=== PATIENT | female | born 1950 | race Caucasian/White ===

== ENCOUNTER → 2017-04-24 | Outpatient (CLI) | payer MEDICARE, BC ==
--- NOTE | 2017-04-27 19:03 | Diagnostic Imaging Report ---
Bilateral screening mammogram. The current study was also evaluated with a Computer Aided Detection (CAD) system. INDICATION: Screening. No current complaints stated on the questionnaire. COMPARISON: 04/17/2016. FINDINGS: The breasts are composed of scattered fibroglandular densities. There are occasional benign-appearing calcifications. Allowing for technique and positional differences, no suspicious change is seen. IMPRESSION: No significant change. ACR BI-RADS Category 2: Benign findings. Result letter will be mailed to the patient. Note: At least 10% of breast cancer is not imaged by mammography. Dictated by: Dictated on workstation # [id number]
== END ==
LOC: RAD 09:35
PROVIDERS: ATTEND Physician Assistant Medical
DX: Z12.31 Encounter for screening mammogram for malignant neoplasm of breast (principal)
CPT/HCPCS: 77067

== ENCOUNTER → 2018-02-19 | Outpatient (RCR) | payer MEDICARE, BC | END | disposition home or self-care (01) | LOC: CR3 01-20 14:48 | PROVIDERS: ATTEND Physician Assistant Medical | DX: Z29.8 Encounter for other specified prophylactic measures (principal) ==

== ENCOUNTER → 2018-03-24 | Outpatient (RCR) | payer MEDICARE, BC | END | disposition home or self-care (01) | LOC: CR3 02-22 09:00 | PROVIDERS: ATTEND Physician Assistant Medical | DX: Z29.8 Encounter for other specified prophylactic measures (principal) ==

== ENCOUNTER 2018-04-23 11:47 | Outpatient (RCR) | payer BC, MEDICARE | END 2018-04-25 | disposition home or self-care (01) | LOC: CR3 11:47 | PROVIDERS: ATTEND Physician Assistant Medical | DX: Z29.8 Encounter for other specified prophylactic measures (principal) ==

== ENCOUNTER → 2018-04-29 | Outpatient (CLI) | payer MEDICARE ==
--- NOTE | 2018-04-29 19:56 | Diagnostic Imaging Report ---
INDICATION: Routine screening. Comparison is made with prior mammograms from 04/24/2017 and 04/17/2016. 2-D and 3-D bilateral screening mammography was performed. The current study was also evaluated with a Computer Aided Detection (CAD) system. FINDINGS: Scattered fibroglandular densities are identified bilaterally. The parenchymal pattern is stable. Intramammary lymph node in the lower central left breast appears stable. No new mass or malignant-appearing microcalcifications are seen. The axillae are unremarkable. IMPRESSION: No mammographic features suspicious for malignancy are identified. ACR BI-RADS Category 2: Benign findings. Result letter will be mailed to the patient. Note: At least 10% of breast cancer is not imaged by mammography. Dictated by: Dictated on workstation # [id number]
== END ==
LOC: RAD 09:37
PROVIDERS: ATTEND Physician Assistant Medical
DX: Z12.31 Encounter for screening mammogram for malignant neoplasm of breast (principal)
CPT/HCPCS: 77067

== ENCOUNTER → 2018-05-28 | Outpatient (RCR) | payer MEDICARE | END | disposition home or self-care (01) | LOC: CR3 04-28 13:00 | PROVIDERS: ATTEND Physician Assistant Medical | DX: Z29.8 Encounter for other specified prophylactic measures (principal) ==

== ENCOUNTER 2018-06-18 09:30 | Outpatient (RCR) | payer MEDICARE | END 2018-07-02 | disposition home or self-care (01) | LOC: CR3 09:30 | PROVIDERS: ATTEND Physician Assistant Medical | DX: Z29.8 Encounter for other specified prophylactic measures (principal) ==

== ENCOUNTER → 2018-08-06 | Outpatient (RCR) | payer MEDICARE | END | disposition home or self-care (01) | LOC: CR3 07-07 10:00 | PROVIDERS: ATTEND Physician Assistant Medical | DX: Z29.8 Encounter for other specified prophylactic measures (principal) ==

== ENCOUNTER → 2018-09-08 | Outpatient (RCR) | payer MEDICARE | END | disposition home or self-care (01) | LOC: CR3 08-09 10:00 | PROVIDERS: ATTEND Physician Assistant Medical | DX: Z29.8 Encounter for other specified prophylactic measures (principal) ==

== ENCOUNTER 2018-10-04 09:28 | Outpatient (RCR) | payer MEDICARE | END 2018-10-13 | disposition home or self-care (01) | LOC: CR3 09:28 | PROVIDERS: ATTEND Physician Assistant Medical | DX: Z29.8 Encounter for other specified prophylactic measures (principal) | CPT/HCPCS: 93798 ==

== ENCOUNTER 2018-11-05 09:34 | Outpatient (RCR) | payer MEDICARE | END 2018-11-19 | disposition home or self-care (01) | LOC: CR3 09:34 | PROVIDERS: ATTEND Physician Assistant Medical | DX: Z29.8 Encounter for other specified prophylactic measures (principal) ==

== ENCOUNTER 2018-11-22 17:18 | Outpatient (RCR) | payer MEDICARE | END 2018-12-22 | disposition home or self-care (01) | LOC: CR3 17:18 | PROVIDERS: ATTEND Physician Assistant Medical | DX: Z29.8 Encounter for other specified prophylactic measures (principal) ==

== ENCOUNTER → 2019-05-05 | Outpatient (CLI) | payer MEDICARE ==
--- NOTE | 2019-05-05 18:47 | Diagnostic Imaging Report ---
INDICATION: Routine screening. COMPARISON: Comparison is made with prior mammogram from 04/29/2018 and 04/24/2017. 2-D and 3-D bilateral screening mammography was performed. The current study was also evaluated with a Computer Aided Detection (CAD) system. 3-D tomosynthesis was also performed and reviewed. FINDINGS: Scattered fibroglandular densities are identified bilaterally. The parenchymal pattern is stable. No mass or malignant-appearing microcalcifications are seen. There are benign calcifications present. Axillae are unremarkable. IMPRESSION: No mammographic features suspicious for malignancy are identified. ACR BI-RADS Category 2: Benign findings. Result letter will be mailed to the patient. Note: At least 10% of breast cancer is not imaged by mammography. Dictated by: Dictated on workstation # [id number]
== END ==
LOC: RAD 09:36
PROVIDERS: ATTEND Physician Assistant Medical
DX: Z12.31 Encounter for screening mammogram for malignant neoplasm of breast (principal)
CPT/HCPCS: 77067

== ENCOUNTER 2019-07-20 09:41 | Outpatient (RCR) | payer MEDICARE | END 2019-07-27 | disposition home or self-care (01) | LOC: CR3 09:41 | PROVIDERS: ATTEND Physician Assistant Medical | DX: Z29.8 Encounter for other specified prophylactic measures (principal) ==

== ENCOUNTER → 2020-05-07 | Outpatient (CLI) | payer MEDICARE ==
--- NOTE | 2020-05-07 11:23 | Diagnostic Imaging Report ---
INDICATION: Routine screening. Comparison is made with prior mammogram from 05/05/2019 and 04/29/2018. 2-D and 3-D bilateral screening mammography was performed with CAD. Scattered fibroglandular densities are identified bilaterally. The parenchymal pattern is stable. No dominant mass or malignant appearing microcalcifications are seen. Axillae are unremarkable. IMPRESSION: BI-RADS Category 1 No mammographic features suspicious for malignancy are identified. ACR BI-RADS Category 1: Negative. Result letter will be mailed to the patient. Note: At least 10% of breast cancer is not imaged by mammography. Dictated by: Dictated on workstation # [id number]
== END ==
LOC: RAD 09:01
PROVIDERS: ATTEND Nurse Practitioner Family
DX: Z12.31 Encounter for screening mammogram for malignant neoplasm of breast (principal)
CPT/HCPCS: 77063; 77067

== ENCOUNTER → 2021-05-09 | Outpatient (CLI) | payer MEDICARE ==
--- NOTE | 2021-05-10 10:13 | Diagnostic Imaging Report ---
INDICATION: 2-D and 3-D digital screening with CAD. COMPARED: 05/07/2020, 04/2019 and 04/2018. FINDINGS: Scattered fibroglandular densities in the breasts. No mass, architectural distortions, spiculated lesion or suspicious calcifications are found. There has been no change. IMPRESSION: Stable negative mammogram BI-RADS Category 1 ACR BI-RADS Category 1: Negative. Result letter will be mailed to the patient. Note: At least 10% of breast cancer is not imaged by mammography. Dictated by: Dictated on workstation # [id number]
== END ==
LOC: RAD 09:54
PROVIDERS: ATTEND Nurse Practitioner Family
DX: Z12.31 Encounter for screening mammogram for malignant neoplasm of breast (principal)
CPT/HCPCS: 77063; 77067

== ENCOUNTER → 2022-05-12 | Outpatient (CLI) | payer MEDICARE ==
--- NOTE | 2022-05-13 10:11 | Diagnostic Imaging Report ---
INDICATION: Bilateral 3-D digital screening with CAD CAD is utilized. The current study was also evaluated with a Computer Aided Detection (CAD) system. Comparison: 04/2021 and 04/2019 Findings: Density 2. No breast mass, spiculated lesion, suspicious calcifications or evidence for malignancy. No architectural distortion, there has been no change. IMPRESSION: Stable negative mammograms. BI-RADS Category 1 ACR BI-RADS Category 1: Negative. Result letter will be mailed to the patient. Note: At least 10% of breast cancer is not imaged by mammography. Dictated by: Dictated on workstation # [id number]
== END ==
LOC: RAD 09:52
PROVIDERS: ATTEND Family Medicine
DX: Z12.31 Encounter for screening mammogram for malignant neoplasm of breast (principal)
CPT/HCPCS: 77063; 77067

== ENCOUNTER → 2022-05-21 | Outpatient (CLI) | payer MEDICARE ==
--- NOTE | 2022-05-21 11:03 | Diagnostic Imaging Report ---
INDICATION: Swelling in the right inguinal region as well as a questionable mass in the right buttocks. This study is performed for further evaluation. FINDINGS: Sonographic interrogation of the right inguinal region does demonstrate an area of heterogeneity measuring 3.0 x 1.6 x 3.6 cm that appears to increase during Valsalva. Findings are most suggestive of a hernia. This hernia sac may contain bowel loops. Sonographic interrogation of the area of mass in the right buttock region does show a shadowing mass measuring 1.1 x 0.4 x 1.6 cm. This is suggestive of a calcified mass. Significant shadowing does limit characterization. IMPRESSION: 1. Right inguinal hernia, likely containing bowel loops. 2. Calcified right buttock mass, nonspecific. Dictated by: Dictated on workstation # [id number]
== END ==
LOC: RAD 09:36
PROVIDERS: ATTEND Nurse Practitioner Family
DX: K40.90 Unilateral inguinal hernia, without obstruction or gangrene, not specified as recurrent (principal); R22.31 Localized swelling, mass and lump, right upper limb
CPT/HCPCS: 76881

== ENCOUNTER 2022-07-03 05:32 | Outpatient (CLI) | payer MEDICARE ==
[~2022-07-03] VITALS: Ht 157.5 cm; Wt 64.9 kg
[2022-07-03] MEDS ORDERED: PRED5TAB46 PO (16:18)
[2022-07-03] MEDS ORDERED: CEPH500T PO (16:18)
[2022-07-04] MEDS ORDERED: OMEP40CA6 PO (11:02)
[2022-07-04] MEDS ORDERED: ALPH600C3 PO (11:02)
[2022-07-04] MEDS ORDERED: [UNRECOGNIZED DRUG - CODE] PO (11:02)
[2022-07-04] MEDS ORDERED: MILK175C5 PO (11:02)
[2022-07-04] MEDS ORDERED: CALC-83 PO (11:02)
[2022-07-04] MEDS ORDERED: PSYL1PAC10 PO (11:02)
[2022-07-04] MEDS ORDERED: CHOL-34 PO (11:02)
[2022-07-04] MEDS ORDERED: PRAS1TAB3 PO (11:02)
[2022-07-04] MEDS ORDERED: TRZ50T PO (11:02)
[2022-07-04] MEDS ORDERED: CHRO200T13 PO (11:02)
[2022-07-04] MEDS ORDERED: PARO20TA5 PO (11:02)
[2022-07-04] MEDS ORDERED: CYAN100T37 PO (11:02)
[2022-07-04] MEDS ORDERED: LACT1CAP74 PO (11:02)
== END 2022-07-04 11:03 | disposition home or self-care (01) ==
LOC: PREOP 05:32
PROVIDERS: ATTEND Surgery
DX: Z01.818 Encounter for other preprocedural examination (principal)

== ENCOUNTER 2022-07-10 06:29 | Day surgery (SDC) | payer MEDICARE ==
[~2022-07-10] VITALS: Ht 157.5 cm; Wt 64.9 kg
[2022-07-10] VITALS (10 sets, daily range): BP systolic 133–169; BP diastolic 10–109
[~2022-07-10 06:29] MED LIST: ALPH600C3 PO; CALC-83 PO; CEPH500T PO; CHOL-34 PO; CHRO200T13 PO; CYAN100T37 PO; LACT1CAP74 PO; MILK175C5 PO; OMEP40CA6 PO; PARO20TA5 PO; PRAS1TAB3 PO; PRED5TAB46 PO; PSYL1PAC10 PO; TRZ50T PO; [UNRECOGNIZED DRUG - CODE] PO
[2022-07-10] MEDS ORDERED: ceFAZolin INJECTION 2,000 MG in NS (IVPB) 50 ML IV ONE (06:45)
[2022-07-10] MEDS ORDERED: BUP/EPI 0.5% 1:200,000 (MARCAINE) 10ML VIAL IJ ONE ×2 (06:52→07:30)
[2022-07-10] MEDS: LACTATED RINGERS 1,000 ML IV PRN ×2 (07:01→10:08)
[2022-07-10] MEDS ORDERED: BUP/EPI 0.5% 1:200,000 (SENSORCAINE) 30 ML VIAL INJ ONE (07:15)
[2022-07-10] MEDS ORDERED: proPOfol 200 MG/20 ML (DIPRIVAN) VIAL IV ONE (07:22)
[2022-07-10] MEDS ORDERED: SEVOFLURANE (ULTANE) 15 ML INHAL SOLN ONE ×2 (07:22→09:16)
[2022-07-10] MEDS ORDERED: ONDANSETRON 4 MG/2 ML (SDV) Z0FRAN ONE (07:22)
[2022-07-10] MEDS ORDERED: LIDOCAINE PF 2% 5 ML (XYLOCAINE) VIAL ONE (07:22)
[2022-07-10] MEDS ORDERED: ROCURONIUM 10 MG/ML 5 ML SYRINGE IV ONE (07:22)
[2022-07-10] MEDS ORDERED: MIDAZOLAM 2 MG/2 ML (VERSED) VIAL ONE (07:22)
[2022-07-10] MEDS ORDERED: fentaNYL INJ 100 MCG/2 ML AMP ONE (07:22)
--- NOTE | 2022-07-10 08:40 | Progress Note-Pre Operative ---
Pre-Operative Progress Note Date of Available H&P: Jul 14, 2022 Date H&P Reviewed: Jul 10, 2022 Time H&P Reviewed: 08:40 History & Physical: H&P Reviewed, Patient Examed, No changes noted Pre-Operative Diagnosis: right inguinal hernia NURY CAMERON DO Jul 10, 2022 08:40
[2022-07-10] MEDS ORDERED: ACHD5005 PO (10:22)
[2022-07-10] MEDS ORDERED: DOCU-143 PO (10:22)
--- NOTE | 2022-07-10 10:25 | Discharge Inst-Simple/Standard ---
Discharge Inst-Standard Discharge Medications New, Converted or Re-Newed RX: Transmitted to Pharmacy Patient Instructions/Follow Up Plan of Care/Instructions/FU: 2-3 weeks Angel Activity as Tolerated: No Discharge Diet: Regular Diet Other Inst to Patient Follow up Appt: Make appointment for 2-3 week. Instructions: No lifting greater than 10 pounds. No strenuous activity. May shower in 24 hours, no tub bath or soaking. Use incentive spirometer at home as directed. No Smoking Skin/Wound Care: You have special glue over your incision that will fall off on it's own. Symptoms to Report: Appetite Changes, Extremity Discoloration, Numbness/Tingling, Swelling Increas ed, Bleeding Excessive, Eyesight Changes, Pain Increased, Urine Color Change, Constipation(Persistent), Fever over 101 degree F, Pain/Pressure in chest, Urinating Difficulty, Cough Up/Vomit Blood, Heart Beat Irreg/Pounding, Pain/Pressure in jaw, Vaginal Bleeding Increase, Cramps in feet or legs, Lightheadedness, Pain/Pressure in shoulder, Diarrhea(Persistent), Memory Changes Suddenly, Questions/Concerns, Weight gain consecutive days, Dizziness/Fainting, Nausea/Vomiting, Shortness of Breath, Weight gain over 2 pounds If questions or concerns contact your physician Or seek help at emergency department. NURY CAMERON DO Jul 10, 2022 10:25
[2022-07-10] MEDS ORDERED: ONDANSETRON 4 MG/2 ML (SDV) Z0FRAN IVP PRN (10:30)
[2022-07-10] MEDS ORDERED: fentaNYL INJ 100 MCG/2 ML AMP IVP ONE (10:30)
[2022-07-10] MEDS ORDERED: morphine INJ 10 MG/ML 1ML (SYR OR VIAL) IVP ONE (10:30)
[2022-07-10] MEDS ORDERED: MEPERIDINE (DEMEROL) INJ 50 MG/ML IVP ONE (10:30)
--- NOTE | 2022-07-10 10:31 | Anesthesia-General Post-Op ---
General Patient Condition Mental Status/LOC: Same as Preop Cardiovascular: Satisfactory Nausea/Vomiting: Absent Respiratory: Satisfactory Pain: Controlled Complications: Absent Post Op Complications Complications None Follow Up Care/Instructions Patient Instructions None needed. Anesthesia/Patient Condition Patient Condition Patient is doing well, no complaints, stable vital signs, no apparent adverse anesthesia problems. No complications reported per nursing. PATITO WRIGHT CRNA Jul 10, 2022 10:31
[2022-07-10] MEDS ORDERED: HYDROcodone/APAP 5 MG/325 MG (LORTAB) TAB ONE (11:41)
[2022-07-10] MEDS ORDERED: HYDROcodone/APAP 5 MG/325 MG (LORTAB) TAB PO ONE (11:45)
--- NOTE | 2022-07-10 15:03 | OPERATIVE REPORT ---
DATE OF SERVICE: 07/10/2022 PREOPERATIVE DIAGNOSIS: Right inguinal hernia. POSTOPERATIVE DIAGNOSIS: Incarcerated right direct inguinal hernia and indirect inguinal hernia with round ligament lipoma, cord lipoma. PROCEDURE: Robotic right direct incarcerated and indirect hernia repair with excision of the round ligament lipoma. SURGEON: Dr. Ortiz. ANESTHESIA: General. CONSUMER RELATIONS COMPLAINT CLERK: Dr. Abernathy, assisted in retraction, dissection and closure. ESTIMATED BLOOD LOSS: Minimal. COMPLICATIONS: None. SPECIMENS: Round ligament lipoma. INDICATIONS: The patient is a 72-year-old female with a right inguinal hernia. She understands risks and benefits of procedure and wished to proceed. Consent was signed in the chart. DESCRIPTION OF PROCEDURE: The patient was taken to the operating suite, prepped and draped in sterile fashion. Timeout was performed. Local anesthetic was infiltrated just above the umbilicus, 11 blade scalpel was used to make an incision. Cautery used to dissect down to the fascia, which was then scored, opened and the abdomen was then entered. An 0 Vicryl was placed in a [id number] fashion for closure at the end of the case. A gastelum trocar was inserted, and pneumoperitoneum was achieved. Under direct visualization of the laparoscope, an 8 mm trocar was placed in the right side of the abdomen and 8 mm trocar was placed in the left side of the abdomen. Multiple adhesions were present. These were then taken down with both blunt dissection and also with robot after it was docked. The robot was docked. The peritoneum was then taken down visualizing an incarcerated direct inguinal hernia. Blunt dissection was used to continue to mobilize this along with some scissor cautery. Mark's ligament was identified. Then, dissection was taken down approximately 2 cm below the pelvic rim. This was done laterally as well. Also noting an indirect hernia present, which was mobilized and freed. The round ligament was present which also cord lipoma through this, which the round ligament lipoma was excised. A large right 3DMax mesh was inserted, secured to Mark's ligament and also laterally with Vicryl suture. The peritoneum was then closed using 2-0 V-Loc. The lipoma was removed. The sutures were removed. The abdomen was then desufflated. The trocars were removed. The 0 Vicryl placed at the end of the case was then tied. Skin was then closed with 4-0 Monocryl in subcuticular fashion. The abdomen was then washed and dried and Skin Affix was placed over the incisions. The patient tolerated the procedure well without any complications, taken to recovery room in stable condition. Job ID: [id number] DocumentID: [id number] Dictated Date: 07/10/2022 10:32:10 Cargo Router Date: 07/10/2022 15:02:58 Dictated By: NURY ORTIZ DO
== END 2022-07-10 12:25 | disposition home or self-care (01) ==
LOC: SDC 06:29
PROVIDERS: ATTEND Surgery
DX: K40.30 Unilateral inguinal hernia, with obstruction, without gangrene, not specified as recurrent (principal); K40.90 Unilateral inguinal hernia, without obstruction or gangrene, not specified as recurrent; D28.2 Benign neoplasm of uterine tubes and ligaments; F17.210 Nicotine dependence, cigarettes, uncomplicated; Z28.311 Partially vaccinated for COVID-19; K21.9 Gastro-esophageal reflux disease without esophagitis
CPT/HCPCS: 49650; 58662; 87081; 88304; C1781

== ENCOUNTER → 2023-06-16 | Outpatient (CLI) | payer MEDICARE ==
[~2023-06-16] MED LIST changes: +ACHD5005 PO; +DOCU-143 PO
--- NOTE | 2023-06-16 08:54 | Diagnostic Imaging Report ---
INDICATION: Postmenopausal screening COMPARISON: None FINDINGS: AP Spine L1-L4: [BMD (g/cm2): 1.313] [T-Score: 0.9] [Z-Score: 2.8] [BMD Previous: na] [BMD % Change: na] LT Hip Neck: [BMD (g/cm2): 0.850] [T-Score: -1.4] [Z-Score: 0.5] LT Hip Total: [BMD (g/cm2):0.938] [T-Score:-0.6] [Z-Score: 1.1] [BMD Previous: na] [BMD % Change: na] RT Hip Neck: [BMD (g/cm2):0.857] [T-Score:-1.3] [Z-Score:0.6] RT Hip Total: [BMD (g/cm2):0.896] [T-score:-0.9] [Z-Score:0.8] [BMD Previous:na] [BMD % Change:na] *Indicates significant change from prior examination based on 95% confidence level. World Health Organization criteria for BMD interpretation classify patients as Normal (T-score at or above -1.0), Osteopenic (T-score between -1.0 and -2.5) or Osteoporotic (T-score at or below -2.5). LIMITATIONS AND MODIFICATION: None. FRACTURE RISK (FRAX SCORE): The ten year probability of (%): Major Osteoporotic Fracture: [12.8] Hip Fracture: [3.9] IMPRESSION: 1. Osteopenia (Low bone mass). 2. See below National Osteoporosis Foundation guidelines on when to potentially initiate pharmacologic therapy. Based on the National Osteoporosis Foundation Guidelines, pharmacologic treatment should be initiated in any of the following, unless clinical conditions suggest otherwise: * Any patient with prior fragility fracture of the hip or vertebrae. A spine fracture indicates 5X risk for subsequent spine fracture and 2X risk for subsequent hip fracture. * Osteoporosis (T-score <-2.5). * Postmenopausal women and men age 50 and older with low bone mass/osteopenia (T-score between -1.0 and -2.5) by DXA and 10-year major osteoporotic fracture greater than 20% or a 10-year probability of hip fracture greater than 3%. These fracture risks are supplied above in the FRAX score, if applicable. * Clinician judgement and/or patient preferences may indicate treatment for people with 10-year fracture probabilities above or below these levels. Dictated by: Dictated on workstation # [id number]
--- NOTE | 2023-06-16 16:23 | Diagnostic Imaging Report ---
INDICATION: Routine screening. COMPARISON: 05/12/2022 and 05/09/2021. TECHNIQUE: 2D and 3D bilateral screening mammography was performed with CAD. FINDINGS: Both breasts are heterogeneously dense, limiting the sensitivity of mammography. Occasional benign calcifications are noted bilaterally. No mass or malignant-appearing microcalcifications are seen. The axillae are unremarkable. IMPRESSION: No mammographic features suspicious for malignancy are identified. ACR BI-RADS Category 2: Benign findings. Result letter will be mailed to the patient. Note: At least 10% of breast cancer is not imaged by mammography. Dictated by: Dictated on workstation # [id number]
== END ==
LOC: RAD 08:00
PROVIDERS: ATTEND Nurse Practitioner Family
DX: Z12.31 Encounter for screening mammogram for malignant neoplasm of breast (principal); M81.0 Age-related osteoporosis without current pathological fracture; M85.80 Other specified disorders of bone density and structure, unspecified site
CPT/HCPCS: 77063; 77067; 77080